=== PATIENT | female | born 1975 | race Caucasian/White ===

== ENCOUNTER → 2020-10-28 | Outpatient (CLI) | payer BC, OTHER ==
--- NOTE | 2020-10-28 14:44 | MR ---
EXAMINATION TYPE: MR iac wo/w con DATE OF EXAM: 10/28/2020 COMPARISON: NONE HISTORY: bilateral hearing loss TECHNIQUE: Multiplanar, multisequence images of the brain and brainstem is performed without and with IV contras t, utilizing 6.5 mL intravenous Gadavist . Acoustic nerve disorder protocol. FINDINGS: Diffusion weighted images demonstrate no evidence of a recent infarct or other diffusion ab normality. There is no worrisome extra-axial fluid collection. The ventricular system and cisternal spaces are normal in size and appearance. The brain volume is age appropriate. There is occasional tiny focus of T2 hyperintensity scattered throughout the white matter bilaterally. Less than 5 focal lesions are present. Midline structures demonstrate normal morphology. The craniocervical junction appears within normal limits. Normal vascular flow voids. Mild mucosal thickening with dependent fluid in the left maxillar y sinus. Some artifact distortion. Globes grossly intact. Increased fluid signal throughout the right mastoid air cells. Vestibular cochlear complex is symmetr ic and within normal limits. No suspicious enhancing mass is identified bilaterally. IMPRESSION: 1. Possible right-sided mastoiditis, correlate clinically. 2. Acute on chronic left maxillary sinusitis.
== END | disposition home or self-care (01) ==
LOC: RADMRIMAIN 12:45
PROVIDERS: ATTEND Otolaryngology
DX: H91.93 Unspecified hearing loss, bilateral (principal)
CPT/HCPCS: 70553; A9585